=== PATIENT | female | born 1965 | race Caucasian/White ===

== ENCOUNTER 2022-09-30 15:25 | Emergency (ER) | payer MEDICARE, OTHER ==
[~2022-09-30] VITALS: Ht 165.1 cm; Wt 81.6 kg
--- NOTE | 2022-09-30 15:55 | NUR ---
C/O DIZZINESS S/P HITTING HEAD ON WALL YESTERDAY.
--- NOTE | 2022-09-30 16:10 | NUR ---
Phleb at bedside.
[2022-09-30 16:23] LABS: BASOPHILS % (AUTO) 0.4 % (0.0-2.0); EOSINOPHILS % (AUTO) 2.8 % (0.0-6.0); HEMATOCRIT 42 % (33-45); HEMOGLOBIN 13.4 g/dL (11.5-14.8); LYMPHOCYTES # (AUTO) 1.4 K/uL (0.8-4.8); LYMPHOCYTES % (AUTO) 16.6 % (20.0-44.0); MEAN CORPUSCULAR HGB CONC 32 g/dl (31.0-36.0); MEAN CORPUSCULAR VOLUME 83 fL (82-100); MONOCYTES # (AUTO) 0.6 K/uL (0.1-1.30); MONOCYTES % (AUTO) 6.7 % (2.0-12.0); NEUTROPHILS # (AUTO) 6.4 K/uL (1.8-8.9); NEUTROPHILS % (AUTO) 73.5 % (43.0-81.0); PLATELET COUNT (AUTO) 411 K/uL (150-450); RED BLOOD CELL COUNT(AUTO) 5.07 MIL/uL (4.0-5.2); WHITE BLOOD COUNT (AUTO) 8.6 K/uL (4.3-11.0)
[2022-09-30 16:49] LABS: MAGNESIUM 2.2 mg/dL (1.8-2.4); POTASSIUM 4.8 mmol/L (3.5-5.1)
[2022-09-30] MEDS ORDERED: IBUPROFEN 600 MG TABLET PO ONE (18:00)
[2022-09-30] MEDS ORDERED: MECLIZINE HCL 12.5 MG TABLET PO ONE (18:00)
[2022-09-30] MEDS ORDERED: IBUPROFEN 600 MG TABLET ONE (18:04)
[2022-09-30] MEDS ORDERED: MECLIZINE HCL 25 MG TABLET ONE (18:04)
[2022-09-30 18:34] VITALS: BP 149/80
--- NOTE | 2022-09-30 18:34 | NUR ---
Patient discharged to home in stable condition. Written and verbal after care instructions given. Patient verbalizes understanding of instruction.
== END 2022-09-30 18:35 | disposition home or self-care (01) ==
LOC: ER 15:30
DX: S09.90XA Unspecified injury of head, initial encounter (principal); F03.90 Unspecified dementia, unspecified severity, without behavioral disturbance, psychotic disturbance, mood disturbance, and anxiety; F25.9 Schizoaffective disorder, unspecified; Z60.2 Problems related to living alone; W22.8XXA Striking against or struck by other objects, initial encounter; Y93.89 Activity, other specified; Y92.89 Other specified places as the place of occurrence of the external cause; Y99.8 Other external cause status
CPT/HCPCS: 99284; 70450; 85025; 80048; 83735; 36415; J8597